=== PATIENT | male | born 1995 ===

== ENCOUNTER → 2023-07-26 | Outpatient (CLI) | payer OTHER ==
[~2023-07-26] MED LIST: DOXYCYCLINE HY100 MG PO; ELIQUIS 5MG PO; MULTI VITAMINS1 TAB PO; PRILOSEC 20MG20 MG PO
== END ==
LOC: CANSCHCLI → COL.PUL 12:56
DX: R06.02 Shortness of breath (principal)
CPT/HCPCS: J7674